=== PATIENT | male | born 1970 | race American Indian/Alaskan Native ===

== ENCOUNTER 2017-02-27 09:29 | Emergency (ER) | payer OTHER ==
--- NOTE | 2017-02-27 10:15 | EDM.PDOC ---
ED HPI GENERAL MEDICAL PROBLEM - General Chief Complaint: Allergic Reaction Stated Complaint: IN BY AMBULANCE ALLERGIC REACTION Time Seen by Provider: 02/27/17 10:05 Source of Information: Reports: Patient, EMS History Limitations: Reports: No Limitations - History of Present Illness INITIAL COMMENTS - FREE TEXT/NARRATIVE: This 47 yo male patient was brought to the ED by [facility] due to a possible allergic reaction and anxiety. The patient reports he was on his way out to a family members residence, grabbed some weed wackers and was driving in the vehicle when he noticed a rash and welts on his right forearm. The patient reports he thinks he got himself "worked" up due to a possible allergic reaction. EMS reports the patient was doing well when they contacted the patient. EMS gave the patient 50 mg of Benadryl during transport. The patient's symptoms were improving prior to his arrival in the ED. Onset: Today Duration: Minutes:, Improving Location: Reports: Upper Extremity, Right Quality: Reports: Dull Severity: Moderate Improves with: Reports: None Worsens with: Reports: None Associated Symptoms: Reports: No Other Symptoms Treatments [employer]: Reports: Other Medication(s), See EMS Report - Related Data Allergies Allergy/AdvReac Type Severity Reaction Status Date / Time No Known Allergies Allergy Verified 02/27/17 09:30 Home Meds: Home Meds Mometasone/Formoterol [Dulera 100-5 MCG] 60 inh PO BID 02/27/17 [History] Past Medical History HEENT History: Reports: Impaired Vision Respiratory History: Reports: Asthma Genitourinary History: Reports: Renal Calculus - Past Surgical History Musculoskeletal Surgical History: Reports: Other (See Below) Other Musculoskeletal Surgeries/Procedures:: achilles tendon surgery Social & Family History - Family History Family Medical History: Noncontributory - Tobacco Use Smoking Status *Q: Never Smoker Second Hand Smoke Exposure: No - Caffeine Use Caffeine Use: Reports: Coffee - Recreational Drug Use Recreational Drug Use: No ED ROS ALLERGIC REACTION - Review of Systems Review Of Systems: ROS reveals no pertinent complaints other than HPI. ED EXAM GENERAL NO PERIP PULSE - Physical Exam Exam: See Below Exam Limited By: No Limitations General Appearance: Alert, WD/WN, No Apparent Distress, Thin Eye Exam: Bilateral Eye: EOMI, Normal Inspection, PERRL Ears: Normal External Exam, Normal Canal, Hearing Grossly Normal, Normal TMs Nose: Normal Inspection, Normal Mucosa, No Blood Throat/Mouth: Normal Inspection, Normal Lips, Normal Teeth, Normal Gums, Normal Oropharynx, Normal Voice, No Airway Compromise Head: Atraumatic, Normocephalic Neck: Normal Inspection, Supple, Non-Tender, Full Range of Motion Respiratory/Chest: No Respiratory Distress, Lungs Clear, Normal Breath Sounds, No Accessory Muscle Use, Chest Non-Tender Cardiovascular: Normal Peripheral Pulses, Regular Rate, Rhythm, No Edema, No Gallop, No JVD, No Murmur, No Rub GI/Abdominal: Normal Bowel Sounds, Soft, Non-Tender, No Organomegaly, No Distention, No Abnormal Bruit, No Mass (Male) Exam: Deferred Rectal (Males) Exam: Deferred Back Exam: Normal Inspection, Full Range of Motion, NT Extremities: Normal Range of Motion, Non-Tender, No Pedal Edema, Normal Capillary Refill Neurological: Alert, Oriented, CN II-XII Intact, Normal Cognition, Normal Gait, Normal Reflexes, No Motor/Sensory Deficits Psychiatric: Normal Affect, Normal Mood Skin Exam: Warm, Dry, Intact, Rash (to the right forearm (patient reports the welts and hives had subsided after EMS gave him Benadryl)) Lymphatic: No Adenopathy Course - Vital Signs Last Recorded V/S: Last Vital Signs Temp 37 C 02/27/17 09:33 Pulse 70 02/27/17 09:33 Resp 16 02/27/17 09:33 BP 118/68 02/27/17 09:33 Pulse Ox 100 02/27/17 09:33 Departure - Departure Time of Disposition: 10:12 Disposition: Home, Self-Care 01 Condition: Fair Clinical Impression: Contact dermatitis Qualifiers: Contact dermatitis type: irritant Contact dermatitis trigger: non-food plants Qualified Code(s): L24.7 - Irritant contact dermatitis due to plants, except food - Discharge Information Instructions: Contact Dermatitis, [id number] Forms: ED Department Discharge Care Plan Goals: The patient was advised of the examination results during the visit. The patient was given a dose of Benadryl by EMS prior to arrival in the ED which improved the patient's symptoms. The patient was encouraged to shower and wash his clothing in warm water. The patient should continue to take Benadryl (25 mg ) every 6 hours for the next 48 hours. If the patient has any additional symptoms or concerns, the patient should visit his primary care facility or return to the emergency department.
== END 2017-02-27 10:16 | disposition home or self-care (01) ==
LOC: DL.ED 09:29
CPT/HCPCS: 99282; 99285